=== PATIENT | male | born 1980 | race Caucasian/White ===

== ENCOUNTER 2018-03-06 12:59 | Emergency (ER) | payer SELFPAY ==
[~2018-03-06] VITALS: Ht 193 cm; Wt 86.2 kg
[2018-03-06] MEDS ORDERED: NAPROSYN500 MG PO (13:38)
== END 2018-03-06 14:42 | disposition home or self-care (01) ==
LOC: ED 12:59
DX: S92.512A Displaced fracture of proximal phalanx of left lesser toe(s), initial encounter for closed fracture (principal); R03.0 Elevated blood-pressure reading, without diagnosis of hypertension; X58.XXXA Exposure to other specified factors, initial encounter; Y93.89 Activity, other specified; Y92.89 Other specified places as the place of occurrence of the external cause; Y99.8 Other external cause status

== ENCOUNTER 2019-03-02 08:40 | Emergency (ER) | payer SELFPAY ==
[~2019-03-02] VITALS: Ht 193 cm; Wt 86.2 kg
[~2019-03-02 08:40] MED LIST: NAPROSYN500 MG PO
[2019-03-02] MEDS ORDERED: NAPROSYN500 MG PO (09:12)
== END 2019-03-02 09:13 | disposition home or self-care (01) ==
LOC: ED 08:40
DX: M70.21 Olecranon bursitis, right elbow (principal); F17.299 Nicotine dependence, other tobacco product, with unspecified nicotine-induced disorders; W22.8XXA Striking against or struck by other objects, initial encounter; Y93.89 Activity, other specified; Y92.69 Other specified industrial and construction area as the place of occurrence of the external cause; Y99.9 Unspecified external cause status